=== PATIENT | male | born 1945 | race Caucasian/White ===

== ENCOUNTER 2018-01-03 20:03 | Emergency (ER) | payer MEDICARE ==
[2018-01-03] MEDS ORDERED: Zestril 20 MG PO STA (20:17)
--- NOTE | 2018-01-03 20:27 | ERPHSYRPT ---
- History of Present Illness Time Seen by Provider: 01/03/18 20:24 Source: patient, family Exam Limitations: no limitations Patient Subjective Stated Complaint: Pain in left foot that radiates up his left leg Triage Nursing Assessment: Pt A&O x3, BP 178/104, states that pain is a 10/10 in his left foot and runs up his leg, hx of gout, Physician History: Pain in left foot that radiates up his left leg states that pain is a 10/10 in his left foot and runs up his leg, hx of gout, Occurred: yesterday Quality: constant Severity of Pain-Max: moderate Severity of Pain-Current: moderate Lower Extremities Pain: leg: left, foot: left Allergies/Adverse Reactions: No Known Drug Allergies Allergy (Verified 01/03/18 20:29) Home Medications: Diclofenac Sodium 50 mg [Voltaren 50 mg] 50 mg PO DAILY 01/03/18 [History] Levothyroxine Sodium 50 Mcg [Synthroid 50 Mcg] 50 mcg PO DAILY 01/03/18 [ History] Lisinopril 20 mg [Zestril 20 MG] 40 mg PO DAILY 01/03/18 [History] Methylprednisolone 4 mg [Medrol 4 mg] 4 mg PO UD 01/03/18 [History] Metoprolol Succinate 100 mg [Toprol Xl 100 MG] 100 mg PO BID 01/03/18 [ History] Pravastatin Sodium [Pravachol] 80 mg PO DAILY 01/03/18 [History] - Review of Systems Constitutional: No Symptoms Eyes: No Symptoms Ears, Nose, & Throat: No Symptoms Respiratory: No Symptoms Cardiac: No Symptoms Abdominal/Gastrointestinal: No Symptoms Genitourinary Symptoms: No Symptoms Musculoskeletal: Joint Pain, Joint Swelling, No Deformity Skin: No Symptoms Neurological: No Symptoms Psychological: No Symptoms Endocrine: No Symptoms Hematologic/Lymphatic: No Symptoms Immunological/Allergic: No Symptoms - Past Medical History Cardiac History: Coronary Artery Disease, Hypertension Endocrine Medical History: Hypothyroidism - Past Surgical History Past Surgical History: No - Social History Smoking Status: Never smoker Exposure to second hand smoke: No Drug Use: none Patient Lives Alone: No - Nursing Vital Signs Nursing Vital Signs: Initial Vital Signs Temperature 98.7 F 01/03/18 20:08 Pulse Rate 104 H 01/03/18 20:08 Blood Pressure 178/104 01/03/18 20:08 O2 Sat by Pulse Oximetry 92 L 01/03/18 20:08 Pain Scale Pain Intensity 10 - Physical Exam General Appearance: no apparent distress Eyes, Ears, Nose, Throat Exam: normal ENT inspection Neck Exam: normal inspection Cardiovascular/Respiratory Exam: chest non-tender Gastrointestinal/Abdominal Exam: non-tender Back Exam: normal inspection Legs Exam: left leg: soft tissue tenderness Ankle Exam: left ankle: soft tissue tenderness Foot Exam: left foot: soft tissue tenderness SpO2: 92 Oxygen Delivery: Room Air - Course Nursing assessment & vital signs reviewed: Yes Ordered Tests: Active Orders 24 hr Category Date Time Status CBC W DIFF Stat Lab 01/03/18 20:40 Completed COMPREHENSIVE/RENAL Stat Lab 01/03/18 20:40 Completed Uric Acid Stat Lab 01/03/18 20:40 Completed Medication Summary Generic Name Dose Route Start Last Admin Trade Name Freq PRN Reason Stop Dose Admin Metoprolol Succinate 50 mg 01/03/18 22:00 01/03/18 20:37 Toprol Xl 50 Mg PO 02/02/18 21:59 50 mg HS XOCHITL Administration Discontinued Medications Generic Name Dose Route Start Last Admin Trade Name Freq PRN Reason Stop Dose Admin Ketorolac Tromethamine 60 mg 01/03/18 20:52 01/03/18 20:56 Toradol 30 Mg Injection IM 01/03/18 20:53 60 mg STAT ONE Administration Ketorolac Tromethamine Confirm 01/03/18 20:53 Toradol 30 Mg Injection Administered 01/03/18 20:54 Dose 60 mg .ROUTE .STK-MED ONE Lisinopril 40 mg 01/03/18 20:17 01/03/18 20:37 Zestril 20 Mg PO 01/03/18 20:18 40 mg DAILY STA Administration Metoprolol Succinate Confirm 01/03/18 20:32 Toprol-Xl 25mg Tablets Administered 01/03/18 20:33 Dose 50 mg .ROUTE .STK-MED ONE Lab/Rad Data: Laboratory Result Diagrams 01/03/18 20:40 01/03/18 20:40 Laboratory Results 01/03/18 01/03/18 01/03/18 Range/Units 20:40 20:40 20:40 WBC 10.8 H (4.0-10.5) K/mm3 RBC 4.71 (4.1-5.6) M/mm3 Hgb 13.5 (12.5-18.0) gm/dl Hct 39.8 L (42-50) % MCV 84.5 (78-100) fl MCH 28.7 (26-32) pg MCHC 33.9 (32-36) g/dl RDW 14.3 H (11.5-14.0) % Plt Count 231 (150-450) K/mm3 MPV 10.5 H (6-9.5) fl Gran % 86.0 H (36.0-66.0) % Eos # (Auto) 0 (0-0.5) Absolute Lymphs (auto) 0.59 L (1.0-4.6) Absolute Monos (auto) 0.90 (0.0-1.3) Lymphocytes % 5.5 L (24.0-44.0) % Monocytes % 8.4 (0.0-12.0) % Eosinophils % 0.0 (0.00-5.0) % Basophils % 0.1 (0.0-0.4) % Absolute Granulocytes 9.27 H (1.4-6.9) Basophils # 0.01 (0-0.4) Sodium 142 (137-145) mmol/L Potassium 4.3 (3.5-5.1) mmol/L Chloride 103 (98-107) mmol/L Carbon Dioxide 23 (22-30) mmol/L Anion Gap 19.5 H (5-15) MEQ/L BUN 21 H (9-20) mg/dL Creatinine 1.28 H (0.66-1.25) mg/dL Estimated GFR 58 ML/MIN Glucose 167 H (74-106) mg/dL Uric Acid 9.2 H (3.5-7.2) mg/dL Calcium 10.1 (8.4-10.2) mg/dL Phosphorus 2.7 (2.5-4.5) mg/dL Total Bilirubin 1.10 (0.2-1.3) mg/dL AST 32 (17-59) U/L ALT 34 (0-50) U/L Alkaline Phosphatase 70 (38-126) U/L Serum Total Protein 8.4 H (6.3-8.2) g/dL Albumin 4.8 (3.5-5.0) g/dL - Progress Progress: improved Counseled pt/family regarding: lab results, diagnosis, need for follow-up - Departure Time of Disposition: 21:17 Departure Disposition: Home Clinical Impression: Gouty arthritis of left great toe Condition: Stable Critical Care Time: No Referrals: LAMONT WILSON [Primary Care Provider] - Instructions: Gout, Lifestyle Changes to Manage Gout, Gout (DC), Low Purine Diet Additional Instructions: BITA GE MILAN was seen on 01/03/18 n the Emergency Room. At that time you were treated for an emergent condition, during your visit Laboratory, Radiology and/or other procedures may have been ordered. It is very important that you follow-up with your Primary Care Physician LAMONT WILSON within the next 24-48 hours to review your Emergency Room visit and the final results of testing that was ordered. Some test results such as Urine Cultures, Blood Cultures, and other cultures if ordered will not be finalized for 24-48 hours. If you do not have a Primary Care Provider please call the medical records department at [phone] to obtain a copy of your results or you may sign into our patient portal to obtain these results by visiting us @ [email or web address] and completing the following steps: 1. Click on the Patient Portal link 2. Click the Patient Self Enrollment Link to complete the enrollment form and entering your 3. Once the enrollment form is completed you will receive an email with a temporary ID and password at the email address you provided. 4. Next choose a user name and password. Your user name must be at least 4 characters long and your password must be at least 4 characters long. 5. Choose a security question from the list and provide your answer to the question. If you already have signed into the Health Portal you may access your Health Care Information 29/04 by the following steps: 1. Login to our website @ [email or web address] 2. Enter your original user name and password. FAQS The [facility] Health Portal is an online tool that contains your Lab Results, Radiology Reports, Visit History, Discharge Instructions and Health Summary Lab and Radiology Results will not be available for 72 hours on the portal. The Portal is a secure site, passwords are encryted and URLs are re-written so they cannot be copied and pasted. You and authorized family members are the only ones who can access your Portal. Also there is a timeout feature that protects your information if you leave the Portal page open. If you have technical difficulty please use the Contact Us link on the page this will allow you to submit any questions you have regarding the Portal or you may contact the Medical Record Department at [phone]. Please take your allopurinol 100 mg every night on a regular basis. Please take indomethacin 25 mg 3 times a day as needed when you have a acute attack of gout. Keep indomethacin Handy just in case if any acute gout attack happens Prescriptions: Indomethacin 25 mg [Indocin 25 MG] 25 mg PO TID #30 capsule Allopurinol 100 mg [Zyloprim 100 mg] 100 mg PO DAILY #30 tablet
[2018-01-03] MEDS ORDERED: Toprol-Xl 25MG Tablets ONE (20:32)
[2018-01-03 20:49] LABS: BASOPHIL % 0.1 % (0.0-0.4); Basophil (Absolute #) 0.01 (0-0.4); Eosinophil (Absolute #) 0 (0-0.5); Granulocyte Absolute (ANC) 9.27 (1.4-6.9); Hematocrit 39.8 % (42-50); Hemoglobin 13.5 gm/dl (12.5-18.0); Lymphocyte (Absolute #) 0.59 (1.0-4.6); Lymphocytes % 5.5 % (24.0-44.0); Mean Cell Volume 84.5 fl (78-100); Mean Corpuscular Hemoglobin 28.7 pg (26-32); Mean Corpuscular Hgb Concent. 33.9 g/dl (32-36); Mean Platelet Volume 10.5 fl (6-9.5); Monocytes % 8.4 % (0.0-12.0); Platelet Count 231 K/mm3 (150-450); Red Blood Count 4.71 M/mm3 (4.1-5.6); Red Cell Distribution Width 14.3 % (11.5-14.0); White Blood Count 10.8 K/mm3 (4.0-10.5)
[2018-01-03] MEDS ORDERED: TORAdol 30 mg Injection IM ONE (20:52)
[2018-01-03] MEDS ORDERED: TORAdol 30 mg Injection ONE (20:53)
[2018-01-03 21:05] LABS: ALBUMIN 4.8 g/dL (3.5-5.0); ANION GAP 19.5 MEQ/L (5-15); BILIRUBIN,TOTAL 1.1 mg/dL (0.2-1.3); Calcium 10.1 mg/dL (8.4-10.2); Creatinine 1 1.28 mg/dL (0.66-1.25); PHOSPHOROUS 2.7 mg/dL (2.5-4.5); Potassium 4.3 mmol/L (3.5-5.1); Total Protein 8.4 g/dL (6.3-8.2)
[2018-01-03 21:26] VITALS: BP 154/98; PULSE 106; O2SAT 96
[2018-01-03 21:29] LABS: Slide Review 1 YES
[2018-01-03] MEDS ORDERED: Toprol Xl 50 MG PO SCH (22:00)
== END 2018-01-03 21:33 | disposition home or self-care (01) ==
LOC: ED 20:03
DX: M10.9 Gout, unspecified (principal); M79.672 Pain in left foot; I10 Essential (primary) hypertension; E03.9 Hypothyroidism, unspecified; Z79.899 Other long term (current) drug therapy
CPT/HCPCS: 36415; 80053; 84100; 84550; 85025; 96372; 99284; J1885; A9270-GY